=== PATIENT | male | born 2000 | race African-American/Black ===

== ENCOUNTER 2020-02-24 20:02 | Emergency (ER) | payer SELFPAY ==
[~2020-02-24] VITALS: Ht 175.3 cm; Wt 68.2 kg
[2020-02-24 20:27] VITALS: BP 113/70
--- NOTE | 2020-02-24 21:00 | PHYS DOC ---
Past Medical History Past Medical History: No Pertinent History (MAREK POLANCO APRN) Past Surgical History: No Surgical History (MAREK POLANCO APRN) Smoking Status: Never Smoker Alcohol Use: None (MAREK POLANCO APRN) Attending Signature I have participated in the care of this patient and I have reviewed and agree with all pertinent clinical information above including history, exam, and recommendations. (KARINA OZUNA MD) Adult General Chief Complaint Chief Complaint: LOWER EXT PAIN HPI HPI Patient is a 20 year old male who presents to the ED today complaining of 6 out of 10 left ankle pain that began yesterday, patient reports rolling his ankle at work. Patient reports pain on palpation as well as weightbearing. Denies anything specifically relieving the pain. (MAREK POLANCO APRN) Review of Systems Review of Systems Constitutional: Denies fever or chills [] Musculoskeletal: Reports left ankle pain Integument: Denies rash or skin lesions [] Neurologic: Denies headache, focal weakness or sensory changes [] All other systems were reviewed and found to be within normal limits, except as documented in this note. (MAREK POLANCO APRN) Allergies Allergies Allergies Coded Allergies Type Severity Reaction Last Updated Verified No Known Drug Allergies 02/24/20 No (KARINA OZUNA MD) Physical Exam Physical Exam Constitutional: Well developed, well nourished, no acute distress, non-toxic appearance. [] Skin: Warm, dry, no erythema, no rash. [] Back: No tenderness, no CVA tenderness. [] Extremities: Left ankle with no obvious deformity, no edema no ecchymosis. Full range of motion to the left ankle. +2 left pedal pulse. Cap refill less than 2 seconds to left toes. Sensation intact to the left lower extremity Neurologic: Alert and oriented X 3, normal motor function, normal sensory function, no focal deficits noted. [] Psychologic: Affect normal, judgement normal, mood normal. [] (MAREK POLANCO APRN) Current Patient Data Vital Signs Vital Signs Date Time Temp Pulse Resp B/P (MAP) Pulse Ox O2 Delivery O2 Flow Rate FiO2 02/24/20 20:27 98.7 60 16 113/70 (84) 100 Room Air 98.7 (KARINA OZUNA MD) EKG EKG [] (MAREK POLANCO APRN) Radiology/Procedures Radiology/Procedures []PROCEDURE: ANKLE LEFT 3V Three-view left ankle dated 02/24/2020. No comparison available. Clinical data indication: Pain after injury. FINDINGS: 3 views left ankle show slight widening of the ankle mortise along the medial side. There is overlying soft tissue swelling. Small curvilinear fragment at the tip of the medial malleolus suggesting a small avulsion. The distal fibula is intact. Posterior malleolus is intact. IMPRESSION: 1. No evidence of displaced fracture. 2. Widening of the medial ankle mortise with questionable small avulsion at the tip of the medial malleolus, suggesting ankle ligament strain or tear. Electronically signed by: Lex Swan MD (02/24/2020 8:56 PM) [id number] DICTATED and SIGNED BY: LEX SWAN MD DATE: 02/24/202055 (MAREK POLANCO APRN) Course & Med Decision Making Course & Med Decision Making Pertinent Labs and Imaging studies reviewed. (See chart for details) This is a 20-year-old male patient presenting to the ED today with left ankle pain after rolling his ankle 2 days ago at work. Right ankle x-rays interpreted by radiologist were negative for fracture, noted for wideningof the medial ankle mortise with questionable small avulsion at the tip of the medial malleolus, suggesting ankle ligament strain or tear. Patient was placed in an aircast applied by the ED RN, neurovascular exam done by me is normal. Provided orthopedic doctor for follow-up as an outpatient. Ice elevation encouraged. OTC pain relievers. (MAREK POLANCO APRN) Dragon Disclaimer Dragon Disclaimer This electronic medical record was generated, in whole or in part, using a voice recognition dictation system. (MAREK POLANCO APRN) Departure Departure Impression: Primary Impression: Avulsion fracture of ankle Additional Impression: Strain of ligament Disposition: 01 HOME, SELF-CARE Condition: STABLE Referrals: NO PCP (PCP) MINISTERIO BERGERON MD Call your doctor this week and set up a follow up appointment Patient Instructions: Avulsion Fracture Additional Instructions: You were evaluated in the emergency room for left ankle pain, your left ankle x- rays were noted for possible ligament strain or tear or avulsion fracture. Please call the provided orthopedic doctor and set up a follow up appointment. Problem Qualifiers Primary Impression: Avulsion fracture of ankle Encounter type: initial encounter Fracture type: closed Laterality: left Qualified Codes: S82.892A - Other fracture of left lower leg, initial encounter for closed fracture MAREK POLANCO APRN Feb 24, 2020 21:00 KARINA OZUNA MD Feb 24, 2020 23:14
== END 2020-02-24 21:29 | disposition home or self-care (01) ==
LOC: ER 20:02
DX: S82.892A Other fracture of left lower leg, initial encounter for closed fracture (principal); M25.572 Pain in left ankle and joints of left foot; W19.XXXA Unspecified fall, initial encounter; Y93.89 Activity, other specified; Y92.89 Other specified places as the place of occurrence of the external cause; Y99.8 Other external cause status
CPT/HCPCS: 73610; 99283; L4350